=== PATIENT | female | born 1950 | race Caucasian/White ===

== ENCOUNTER 2020-06-26 12:48 | Emergency (ER) | payer MEDICARE, OTHER ==
[2020-06-26] MEDS ORDERED: IBUPROFEN 800 MG TABLET PO ONE (13:09)
--- NOTE | 2020-06-26 13:13 | ER Document Report ---
ED Fall - General Chief Complaint: Fall Injury Stated Complaint: FALL/LEFT ANKLE PAIN Time Seen by Provider: 06/26/20 13:05 Primary Care Provider: MIKY LÓPEZ MD [ACTIVE STAFF] - Follow up tomorrow (Call first thing in the morning to get an appointment tomorrow) Mode of Arrival: Wheelchair Information source: Patient Notes: 69-year-old female presents to ED for pain to her left leg foot ankle and knee. She states she was walking down the stairs at the hotel last night when she thought she got to the bottom of the steps she there was a step after she did n ot realize that she missed the step when she stepped down twisting her ankle and then landing on her knee causing pain to the knee to the foot ankle and leg. She states she was able to walk for a while but about 7:00 the pain was getting significant. did put a Raymond wrap to the ankle. She states when she tries to walk her pain level is about a 4 and if she sitting there still it is a 3. She states the only past medical history she has is arrhythmia and she is on blood thinners for that. The left leg is much larger than the right leg so I did offer to do a Doppler but she states no the pain and swelling was not there until she fell last night. She states she does not smoke or use any illicit drugs she does have a glass of wine about once a month. Constitutional: Negative for fever. HENT: Negative for sore throat. Eyes: Negative for visual changes. Cardiovascular: Negative for chest pain. Respiratory: Negative for shortness of breath. Gastrointestinal: Negative for abdominal pain, vomiting or diarrhea. Genitourinary: Negative for dysuria. Musculoskeletal: Pain and swelling to the left knee ankle and foot and lower leg. There is tenderness to the left calf that she states only started after she fell. There is no bruising to the knee there is some pain with range of motion to the ankle and foot but not to the knee. Skin: Negative for rash. Neurological: Negative for headaches, weakness or numbness. 10 point ROS negative except as marked above and in HPI. PHYSICAL EXAMINATION: GENERAL: Well-appearing, well-nourished and in no acute distress. HEAD: Atraumatic, normocephalic. EYES: Pupils equal round extraocular movements intact, conjunctiva are normal. ENT: Nares patent NECK: Normal range of motion LUNGS: No respiratory distress Musculoskeletal: Normal range of motion mild tenderness to the left knee mild tenderness to the left calf and pain with any range of motion to the left ankle and foot. NEUROLOGICAL: Normal speech, normal gait. PSYCH: Normal mood, normal affect. SKIN: Warm, Dry, normal turgor, no rashes or lesions noted. - HPI Occurred: Yesterday Where: Outdoors, Public place Context: Tripped Associated symptoms: None Location of injury/pain: Ankle, Foot, Lower extremity Quality of pain: Achy, Sharp Pain Level: 3 - Related data Allergies/Adverse Reactions: hydrochlorothiazide Allergy (Verified 06/26/20 13:31) Penicillins Allergy (Verified 06/26/20 13:31) Hives Statins Allergy (Uncoded 06/26/20 13:31) Hives Past Medical History - General Information source: Patient - Social History Smoking Status: Never Smoker Frequency of alcohol use: Occasional Drug Abuse: None Lives with: Family Family History: Reviewed & Not Pertinent Patient has suicidal ideation: No Patient has homicidal ideation: No - Past Medical History Cardiac Medical History: Reports: Other - Arrhythmia Pulmonary Medical History: Reports: None EENT Medical History: Reports: None Neurological Medical History: Reports: None Endocrine Medical History: Reports: None Renal/ Medical History: Reports: None Malignancy Medical History: Reports: None GI Medical History: Reports: None Musculoskeletal Medical History: Reports None Skin Medical History: Reports None Psychiatric Medical History: Reports: None Traumatic Medical History: Reports: None Infectious Medical History: Reports: None Surgical Hx: Negative Past Surgical History: Reports: None - Immunizations Immunizations up to date: Yes Physical Exam - Vital signs Vitals: Temp Pulse Resp BP Pulse Ox 98.6 F 59 L 20 173/85 H 97 06/26/20 13:04 06/26/20 13:04 06/26/20 13:04 06/26/20 13:04 06/26/20 13:04 Course - Re-evaluation Re-evalutation: 06/26/20 23:14 Discussed x-rays with Dr. López. He states I could use a stirrup splint a posterior ankle or stirrup splint and posterior ankle. We did treat her with a wide posterior ankle and nonweightbearing crutches as per his recommendation. She was instructed to call his office first thing in the morning to be followed up. He did look at the x-rays himself. He states he thought she could be treated with just a cast and will see her tomorrow in which she would probably not need surgery. I did inform the patient of this. I did give him the name and number for Dr. López and told her to call at 7:30 in the morning per his instructions. Patient verbalized understanding and agreement with treatment plan. She was discharged home with a Spotzot dispense pack. - Vital Signs Vital signs: Temp Pulse Resp BP Pulse Ox 97.6 F 61 18 164/89 H 100 06/26/20 15:29 06/26/20 15:29 06/26/20 15:29 06/26/20 15:29 06/26/20 15:29 - Diagnostic Test Radiology reviewed: Image reviewed, Reports reviewed Procedures - Immobilization Left Ankle Time completed: 15:30 Pre-Proc Neuro Vasc Exam: Normal Immobilizer type: Crutches - Nonweightbearing, Posterior ankle Performed by: PCT Post-Proc Neuro Vasc Exam: Normal Alignment checked and good: Yes Discharge - Discharge Clinical Impression: Disorder of ligament, left ankle Closed fracture of left distal fibula Qualifiers: Encounter type: initial encounter Fracture morphology: unspecified fracture morphology Qualified Code(s): S82.832A - Other fracture of upper and lower end of left fibula, initial encounter for closed fracture Condition: Stable Disposition: HOME, SELF-CARE Additional Instructions: Fibular Shaft Fracture You have a fracture of the distal portion of the fibula (the smaller bone in the lower leg). Need to follow-up with orthopedics tomorrow. This is an unstable fracture due to the fact you have ligament damage in the ankle as well. He recommended no weightbearing on this foot at all until you follow-up with orthopedics. The amount of immobilization required for a fibular fracture varies from person to person. After the initial period of ice, elevation, and rest, you may require only a wrap, or you could require a walking boot or cast. Be sure to follow up as instructed, as the treatment plan may change based on your symptoms. Call the doctor or return at once if there is severe pain or swelling, numbness, or inability to move the foot or toes. Splint Pending Casting Your injury can't be casted until the swelling has subsided. Therefore, a temporary splint has been placed to protect the injury. Full use of an injured area is not possible in a splint. You should follow the doctor's instructions concerning rest, ice, and elevation of the injury. Never do anything which causes pain under the splint. Keep the splint on ALL THE TIME until you return for casting. If there is unexpected severe pain, or numbness, discoloration, or swelling beyond the splint, you should return at once. USE OF CRUTCHES: The doctor has recommended that you not bear weight at this time. You will need to use crutches. Adjust the crutches so the tops come to about two inches under the armpit while you are standing upright. Use your hands -- not your armpits -- to support your weight. To get into a chair, support yourself with one crutch on the injured side. Hold the chair with the other hand, then lower yourself while putting all your weight on the good leg. Going up stairs is `good leg up, step up, then bring up crutches and bad leg.' Down stairs is `bad leg and crutches down, then bring good leg down.' If you develop numbness or swelling in an arm or hand, you are using the crutches incorrectly. Return if you are having any problems with the crutches. ICE & ELEVATION: Apply ice packs frequently against the painful area. Many different schedules are recommended, such as "20 minutes on, 20 minutes off" or "one hour ice, two hours rest." If you need to work, you may need to go longer between ice treatments. You should plan to have the area ice packed AT LEAST one-fourth of the time. The ice should be applied over the wrap, tape, or splint, or over a layer of cloth -- not directly against the skin. Some ice bags have a built-in cloth and can be put directly on the skin. Your injured part should be elevated as much as possible over the next 48 hours. Try to keep the injury above the level of the heart. Avoid use of the injured area. Elevation and rest will decrease the swelling. USE OF ZKEV-TLL-SEANRKD IBUPROFEN: Ibuprofen (Advil, Nuprin, Medipren, Motrin IB) is a medication for fever and pain control. In addition, it has anti- inflammatory effects which may be beneficial, especially in the treatment of injuries. It's best to take ibuprofen with food. Persons with ulcer disease or allergy to aspirin should notify their physician of this before taking ibuprofen. Ibuprofen can be given every four to six hours, for a total of four doses daily. Age Pain or fever dose Antiinflammatory dose 6-8 yr 200 mg (1 tab) 200 mg (1 tab) 9-11 yr 200 mg (1 tab) 200-400 mg (1-2 tab) 11-14 yr 200-400 mg (1-2 tab) 400 mg (2 tab) 15-adult 400 mg (2 tab) 600 mg (3 tab) ORAL NARCOTIC MEDICATION: You have been given a prescription for pain control. This medication is a narcotic. It's best taken with food, as nausea can result if taken on an empty stomach. Don't operate machinery or drive within six hours of taking this medication. Do not combine this medicine with alcohol, or with any medication which can cause sedation (such as cold tablets or sleeping pills) unless you get permission from the physician. Narcotics tend to cause constipation. If possible, drink plenty of fluids and eat a diet high in fiber and fruits. Please be aware that prescription narcotics also have the potential for abuse. People become addicted to these medications because of the general sense of wellbeing that they induce. This feeling along with a significant reduction in tension, anxiety, and aggression provides a stimulating seductive quality to these drugs. Once your pain is under control, we encourage you to discard your unused narcotics. FOLLOW-UP CARE: If you have been referred to a physician for follow-up care, call the physicians office for an appointment as you were instructed or within the next two days. If you experience worsening or a significant change in your symptoms, notify the physician immediately or return to the Emergency Department at any time for re-evaluation. Forms: Elevated Blood Pressure Referrals: MIKY LÓPEZ MD [ACTIVE STAFF] - Follow up tomorrow (Call first thing in the morning to get an appointment tomorrow)
--- NOTE | 2020-06-26 13:53 | RADIOLOGY REPORT (SQ) ---
EXAM DESCRIPTION: KNEE LEFT 4 VIEW IMAGES COMPLETED DATE/TIME: 06/26/2020 12:24 pm REASON FOR STUDY: fall pian and injury. Fell down stairs with anterior knee pain. COMPARISON: None. NUMBER OF VIEWS: Four views. TECHNIQUE: AP, lateral, and both oblique radiographic images acquired of the left knee. LIMITATIONS: None. FINDINGS: MINERALIZATION: Normal. BONES: No acute fracture or dislocation. No worrisome bone lesions. JOINT: No effusion. SOFT TISSUES: No soft tissue swelling. No radio-opaque foreign body. OTHER: No other significant finding. IMPRESSION: NEGATIVE STUDY OF THE LEFT KNEE. NO RADIOGRAPHIC EVIDENCE OF ACUTE INJURY. TECHNICAL DOCUMENTATION: JOB ID: [id number] 2010 [employer]- All Rights Reserved Reading location - IP/workstation name: [email or web address]
--- NOTE | 2020-06-26 14:16 | RADIOLOGY REPORT (SQ) ---
EXAM DESCRIPTION: ANKLE LEFT COMPLETE; FOOT LEFT COMPLETE IMAGES COMPLETED DATE/TIME: 06/26/2020 12:24 pm REASON FOR STUDY: fall pian and injury. Left ankle pain. Left foot pain. COMPARISON: None. NUMBER OF VIEWS: 6 views TECHNIQUE: AP, lateral, and oblique radiographic images acquired of the left foot and ankle. LIMITATIONS: None. FINDINGS: MINERALIZATION: Osteopenia. BONES: There is an acute oblique fracture through the distal fibula. Mild widening of the medial mal leolus. No fracture of the distal tibia. The talus is intact. Bones of the midfoot, metatarsals an d phalanges are intact. JOINTS: Moderate ankle joint effusion. SOFT TISSUES: Soft tissue swelling medial and lateral. No radiopaque foreign body. OTHER: No other significant finding. IMPRESSION: Acute oblique fracture distal fibula. Widening at the medial malleolus suggestive of li gamentous injury. TECHNICAL DOCUMENTATION: JOB ID: [id number] 2010 [employer]- All Rights Reserved Reading location - IP/workstation name: [email or web address]
--- NOTE | 2020-06-26 14:16 | RADIOLOGY REPORT (SQ) ---
EXAM DESCRIPTION: ANKLE LEFT COMPLETE; FOOT LEFT COMPLETE IMAGES COMPLETED DATE/TIME: 06/26/2020 12:24 pm REASON FOR STUDY: fall pian and injury. Left ankle pain. Left foot pain. COMPARISON: None. NUMBER OF VIEWS: 6 views TECHNIQUE: AP, lateral, and oblique radiographic images acquired of the left foot and ankle. LIMITATIONS: None. FINDINGS: MINERALIZATION: Osteopenia. BONES: There is an acute oblique fracture through the distal fibula. Mild widening of the medial mal leolus. No fracture of the distal tibia. The talus is intact. Bones of the midfoot, metatarsals an d phalanges are intact. JOINTS: Moderate ankle joint effusion. SOFT TISSUES: Soft tissue swelling medial and lateral. No radiopaque foreign body. OTHER: No other significant finding. IMPRESSION: Acute oblique fracture distal fibula. Widening at the medial malleolus suggestive of li gamentous injury. TECHNICAL DOCUMENTATION: JOB ID: [id number] 2010 [employer]- All Rights Reserved Reading location - IP/workstation name: [email or web address]
[2020-06-26] MEDS ORDERED: HYDROCODONE/ACETAMINOPHEN 5-325 MG (6 TAB/ER DISP) PO PRN (15:18)
[2020-06-26 15:32] VITALS: BP 164/89
== END 2020-06-26 15:43 | disposition home or self-care (01) ==
LOC: ER 12:48
DX: S82.432A Displaced oblique fracture of shaft of left fibula, initial encounter for closed fracture (principal); M24.272 Disorder of ligament, left ankle; M79.672 Pain in left foot; M25.562 Pain in left knee; W10.9XXA Fall (on) (from) unspecified stairs and steps, initial encounter; Y92.59 Other trade areas as the place of occurrence of the external cause; I49.9 Cardiac arrhythmia, unspecified; Z79.899 Other long term (current) drug therapy; Z88.8 Allergy status to other drugs, medicaments and biological substances; Z88.0 Allergy status to penicillin
CPT/HCPCS: 99284; 73610; 73630; 73564; 29515; A9270 ×2